=== PATIENT | female | born 1970 | race Two or more races ===

== ENCOUNTER → 2023-04-17 | Emergency (ER) | payer OTHER ==
[~2023-04-17] VITALS: Ht 167.6 cm; Wt 107.0 kg
[~2023-04-17] MED LIST: BENADRYL50 MG PO; BENICAR HCT 41 UDTAB PO; DEPAKOTE; MOBIC15 MG PO; SYNTHROID; TRAMADOL HCL-AP1 TAB PO; TYLENOL W-CODEI1 TAB PO; ZANTAC300 MG PO
== END | disposition left against medical advice (07) ==
LOC: ER 11:38
DX: Z53.21 Procedure and treatment not carried out due to patient leaving prior to being seen by health care provider (principal)